=== PATIENT | female | born 1995 | race Two or more races ===

== ENCOUNTER 2016-11-25 14:41 | Emergency (ER) | payer OTHER ==
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
== END 2016-11-25 17:01 | disposition home or self-care (01) ==
LOC: CFTX 14:41 → CED 14:41 → CFTX 15:46
DX: S13.4XXA Sprain of ligaments of cervical spine, initial encounter (principal); S00.93XA Contusion of unspecified part of head, initial encounter; S20.211D Contusion of right front wall of thorax, subsequent encounter; V49.00XA Driver injured in collision with unspecified motor vehicles in nontraffic accident, initial encounter
CPT/HCPCS: 71020; 72040; 84703; 99284